=== PATIENT | female | born 1965 | race American Indian/Alaskan Native ===

== ENCOUNTER 2018-11-20 23:52 | Emergency (ER) | payer SELFPAY ==
[2018-11-21 00:07] VITALS: BP 156/92
== END 2018-11-21 00:18 | disposition left against medical advice (07) ==
LOC: ED 23:52
DX: R07.89 Other chest pain (principal); Z53.21 Procedure and treatment not carried out due to patient leaving prior to being seen by health care provider
CPT/HCPCS: 93005; 93010